=== PATIENT | male | born 1955 | race Caucasian/White ===

== ENCOUNTER → 2021-06-14 12:24 | Outpatient (BNVA) | payer OTHER, SELFPAY | PROVIDERS: Visit Provider Nurse Practitioner | DX: Z20.822 Contact with and (suspected) exposure to COVID-19 (principal) | CPT/HCPCS: 87635 ==

== ENCOUNTER → 2022-01-29 11:12 | Outpatient (BNVA) | payer OTHER, SELFPAY | PROVIDERS: Visit Provider Family Medicine | DX: M79.671 Pain in right foot (principal); M79.672 Pain in left foot; R53.83 Other fatigue; N40.0 Benign prostatic hyperplasia without lower urinary tract symptoms; R07.9 Chest pain, unspecified; F17.219 Nicotine dependence, cigarettes, with unspecified nicotine-induced disorders; Z76.89 Persons encountering health services in other specified circumstances | CPT/HCPCS: 80053; 80061; 84153; 84443; 85025 ==

== ENCOUNTER 2022-03-23 07:11 | Outpatient (CLI) | payer OTHER, SELFPAY ==
--- NOTE | 2022-03-23 08:00 | ECG_ITS ---
[facility] Test Date: 2022-03-23 Pat Name: Mike Carrillo Department: Room: Gender: Male Therapy Aide: Miriam Curry : 1955 Requested By: Morris Hair Order Number: [id number] Kim MD: Joy Rodriguez M.D. Interpretive Statements NAME OF STUDY: LEXISCAN SESTAMIBI STRESS TEST INDICATION: Chest Pain, PROCEDURE: At the baseline, the EKG revealed normal sinus rhythm with incomplete right bundle branch block pattern.. The baseline blood pressure was 144/85 mm Hg with a heart rate of 81 beats/min. Lexiscan was infused over a period of 20 seconds. A total of 0.4 milligrams of Lexiscan was infused. The stress phase was continued for a total of 5 minutes. Heart rate at the end of the stress phase was 90 with a blood pressure 144/78. The EKG at the peak infusion revealed no significant changes. Sestamibi was injected 20 seconds after the Lexiscan infusion. Blood pressure at the end of the recovery phase was 130/84 with a heart rate of 90 per minute. CONCLUSION: 1. No significant EKG changes with the LexiScan infusion 2. No LexiScan induced chest pain or cardiac arrhythmia 3. Normal blood pressure and heart rate response 4. Sestamibi/sestamibi perfusion scan pending; see separate report. Electronically Signed On 03-24-2022 22:49:07 CDT by Joy Rodriguez M.D. [id number]
--- NOTE | 2022-03-23 08:01 | NMCV_ITS ---
NM laron perf SPECT r/s* [id number] Mike Carrillo Age: 66 Gender: M : 1955 Exam Date: 03/23/2022 08:01 Ordering Phys: Morris Cristobal DO Technologist: HILDA Leon Exam Location: [facility] Indications: CHEST PAIN STRESS TEST Please see separate stress test report in [facility] for full findings IMAGE PROTOCOL Rest/Stress 1 Lexiscan Day Radiopharmaceutical Dose (mCi) Administration Site Administered by Rest: Tc-99m 10.6 IV HILDA Kuhn Sestamibi Stress:Tc-99m 32.7 IV HILDA Leon Sestamisaad Rest: 23-Mar-2022 60 Discovery 630 Stress: 23-Mar-2022 30 Discovery 630 0.4mg Lexiscan. Images obtained in supine and prone position. SPECT RESULTS Technical Quality: Excellent Raw Data Analysis: Normal Image Corrections: No attenuation or motion correction applied Summed Stress Score: 4 Summed Rest Score: 3 Summed Difference Score: 1 PERFUSION FINDINGS A small to moderate area of moderately decreased tracer uptake in the basal mid and apical inferior wall region with a subtle area reversibility in the mid inferior region the supine imaging. However with the prone imaging, no significant reversibility was noted. FUNCTIONAL RESULTS (calculated via Gated SPECT) Stress Image LV EF (%): 70 Stress EDV (mL):105 TID: 1.05 Stress ESV (mL):31 FUNCTIONAL FINDINGS: Segmental wall motion analysis revealing no gross wall motion abnormalities IMPRESSIONS 1. Myocardial perfusion imaging revealing a small to moderate area of persistent decreased tracer uptake in the inferior wall region with a subtle area of reversibility, suggesting myocardial scarring with very small area of alberta-infarction ischemia in the distribution of the right coronary artery. However in view of the inconsistency, most likely this is artifactual. 2. Normal LV ejection fraction of 70%. 3. Segmental wall motion analysis revealing no gross wall motion abnormalities. 4. Normal LV volume No similar previous studies are available for comparison Dr Joy Rodriguez MD [facility] (Electronically Signed) Final Date: 24 March 2022 05:41 S
[2022-03-23 08:13] VITALS: BMI 30.8
[2022-03-23 09:47] VITALS: BP 144/75; PULSE 98
[2022-03-23] MEDS: regadenoson 0.4 Mg/5 ml Syringe IVP (09:47)
== END 2022-03-23 07:12 | disposition home or self-care (01) ==
LOC: CDL 07:16
PROVIDERS: Visit Provider Family Medicine
DX: R07.9 Chest pain, unspecified (principal)
CPT/HCPCS: 78452; 93017; A9500; J2785

== ENCOUNTER 2023-01-12 11:29 | Emergency (ER) | payer OTHER, SELFPAY ==
[2023-01-12 11:38] VITALS: BP 144/93; PULSE 89; RESP 16; TEMP 36.3; O2SAT 95
[2023-01-12 11:48] VITALS: BP 158/90; PULSE 87; RESP 16; O2SAT 95
--- NOTE | 2023-01-12 12:10 | USCV_ITS ---
Mike Carrillo Age: 67 Gender: M : 1955 Exam Date: 01/12/2023 12:25 Ordering Phys: Kalpesh Lazo Technologist: Exam Location: [facility] [place] Indication: bilat edema lt leg pain PROCEDURES: The venous duplex Doppler examination of both lower extremities was performed in the standard fashion. The following venous structures were evaluated: common femoral vein, profunda vein, proximal portion of the greater saphenous vein, superficial femoral vein, and the popliteal vein. In addition, the posterior tibial and peroneal trunk were evaluated. FINDINGS: Normal 2-D Doppler and augmentation and compressibility throughout the lower extremity venous structures. Additional imaging through the proximal calf veins also reveals no thrombus. There is superficial thombus in the lt greater saphenous vein just below the knee. CONCLUSIONS Superfical thrombus left greater saphenous just below the knee Otherwise no evidence of left lower extremity DVT. No evidence of right lower extremity DVT. Eitan Gupta MD (Electronically Signed) Final Date: 12 January 2023 13:57 Amended: 26 January 2023 16:55 C
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
[2023-01-12 12:13] VITALS: BP 158/90; PULSE 80; RESP 18; O2SAT 93
[2023-01-12 12:56] VITALS: BP 166/87; RESP 18; O2SAT 93
[2023-01-12 13:15] VITALS: BP 151/116; PULSE 82; RESP 17; O2SAT 92
== END 2023-01-12 13:24 | disposition home or self-care (01) ==
PROVIDERS: Emergency Provider Physician Assistant; PCP Family Medicine
DX: I82.812 Embolism and thrombosis of superficial veins of left lower extremity (principal); Z86.19 Personal history of other infectious and parasitic diseases; F17.210 Nicotine dependence, cigarettes, uncomplicated
CPT/HCPCS: 93970; 99284

== ENCOUNTER 2023-03-19 05:43 | Outpatient (CLI) | payer OTHER, SELFPAY ==
[2023-03-19] VITALS (22 sets, daily range): BP systolic 123–160; BP diastolic 75–97; PULSE 70–86; RESP 10–19; TEMP 36.4–36.6; O2SAT 93–98; BMI 35.1
[2023-03-19] MEDS: aspirin 325 mg Tablet PO (06:30)
[2023-03-19] MEDS: diphenhydrAMINE 50 mg Capsule PO (06:30)
[2023-03-19 06:33] LABS: Basophils # 0.1 10^3/uL (0.0-0.1); Basophils % 0.7 %; Eosinophils # 0.4 10^3/uL (0.0-0.8); Eosinophils % 3.4 %; Hemoglobin 13.8 g/dL (11.7-16.6); Lymphocytes # 2.7 10^3/uL (0.8-4.8); Lymphocytes % 25.4 %; Mean Corpuscular HGB Conc 33.7 g/dL (30.0-36.0); Mean Corpuscular Hemoglobin 31.4 pg (28.0-34.0); Mean Corpuscular Volume 93.2 fl (80-94); Mean Platelet Volume 9.6 fL (7.4-10.4); Monocytes # 0.9 10^3/uL (0.2-0.9); Monocytes % 8.3 %; Neutrophils # 6.64 10^3/uL (1.8-7.7); Neutrophils % 61.7 %; Nucleated Red Blood Cells % 0 %; Platelet Count 227 10^3/cmm (130-400); Red Cell Distribution Width 14.8 % (12.1-15.1); White Blood Count 10.8 10^3/uL (4.0-10.0)
[2023-03-19 06:47] LABS: Anion Gap 14.9 (5-19); Blood Urea Nitrogen 11 mg/dL (8-23); Calcium 9.2 mg/dL (8.5-10.5); Carbon Dioxide 25 mmol/L (22-29); Chloride 105 mmol/L (98-107); Glomerular Filtration Rate 113.2 mL/min (90-130); Glucose 102 mg/dL (65-115); Osmolality Calculated 292 mOsm/kg (285-295); Potassium 3.9 mmol/L (3.5-5.1); Sodium 141 mmol/L (136-145)
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
--- NOTE | 2023-03-19 07:08 | XACV_ITS ---
Gender: Male : 1955 Exam Priority: Routine Antonino VASQUEZ; Diagnostic Cath Status: Elective Diagnostic Findings * Patient has been having unusual chest discomfort below his left clavicle for several months. Stress testing was done which showed a small fixed defect in the distribution of the right coronary artery with a small amount of alberta-infarct ischemia. Patient was also having shortness of breath and other unusual symptoms. He requested coronary angiography. * Coronary angiography reveals right coronary artery dominance. The left main coronary artery is normal. The circumflex is normal. The LAD exhibits to 20% narrowings in the proximal portion and an eccentric 50% narrowing in the midportion. Otherwise the vessel is normal. The right coronary artery is normal. Conclusions 1. Nonobstructive coronary artery disease of the LAD. Recommendations * Risk factor modification for secondary prevention. Interventional RX Recommendation: none Diagnostic RX Recommendation: medical therapy and/or counseling Ventriculography Ejection Fraction: 60.0 % I, the attending physician, have reviewed and verified all procedure medications. Yes, all medications given per verbal order Report Signatures Finalized by Dr. Devin Muñiz MD on 03/19/2023 08:16 AM
--- NOTE | 2023-03-19 08:32 | PC.NURSE ---
pt here from [employer] labourer. Bedside report received from Jorge FUENTES. TR band to the right radial site. IV noted to the left wrist. dressing noted to the right groin CDI. no hematoma noted at this time. education provided to the patient regarding bedrest and HOB at only 30 degrees. pulses palpable.
[2023-03-19 09:03] LABS: Glucose Point of Care 97 mg/dL (70-110)
--- NOTE | 2023-03-19 12:59 | PM.DCS ---
Discharge Providers Date of Admission: 03/19/23 08:41 Date of Discharge: March 19, 2023 Attending Provider at Admission: Devin Muñiz MD Attending Provider at Discharge: Devin Muñiz MD Primary Care Provider: Morris Cristobal DO Diagnoses at Discharge Discharge Diagnosis (1) Elevated blood pressure reading: Status: Acute (2) Chest pain: Status: Acute Reason for Visit Reason for Visit: R94.39 Brief History: Patient has been having odd symptoms in his chest including pain for the the better part of the year. 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 He has been bothered by this for all this time. He came to see me in the office a little over a month ago with these continued complaints. I initially tried to schedule angiography and the insurance company denied it. I then went to a peer to peer interview and they finally okayed the angiogram. Brought in for that today Hospital Course Hospital Course He underwent coronary angiography via the right groin. I was able to enter the right radial artery twice but was never able to feed the wire. 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 Otherwise his coronaries are normal. His left ventricular function is normal. There were no complications. Prior to discharge there were no complications of the right groin. There was no bleeding or hematoma or other vascular anomalies. Physical Exam Narrative: GENERAL: General he appears well HEENT: Exam within normal limits. NECK: Supple without jugular vein distention. The carotid upstroke is normal without bruits. BACK: Exam normal. LUNGS: Clear. HEART: Regular rate and rhythm. ABDOMEN: Benign without organomegaly or tenderness. EXTREMITIES: No edema. The time of discharge the right groin is flat, dry without bleeding or hematoma NEUROLOGIC: Exam normal. SKIN: Unremarkable. Discharge Data Studies Completed and Pending Completed Studies During Hospitalization Category Date Time Status [facility] request for service Routine Exams 03/19/23 07:08 Completed Laboratory Results WBC 10.8 10^3/uL (4.0-10.0) H 03/19/23 06:20 RBC 4.40 10^6/uL (4.1-5.3) 03/19/23 06:20 Hgb 13.8 g/dL (11.7-16.6) 03/19/23 06:20 Hct 41.0 % (42.0-52.0) L 03/19/23 06:20 MCV 93.2 fl (80-94) 03/19/23 06:20 MCH 31.4 pg (28.0-34.0) 03/19/23 06:20 MCHC 33.7 g/dL (30.0-36.0) 03/19/23 06:20 RDW 14.8 % (12.1-15.1) 03/19/23 06:20 Plt Count 227 10^3/cmm (130-400) 03/19/23 06:20 MPV 9.6 fL (7.4-10.4) 03/19/23 06:20 Neut % (Auto) 61.7 % 03/19/23 06:20 Lymph % (Auto) 25.4 % 03/19/23 06:20 Cotton % (Auto) 8.3 % 03/19/23 06:20 Eos % (Auto) 3.4 % 03/19/23 06:20 Baso % (Auto) 0.7 % 03/19/23 06:20 Neut # (Auto) 6.64 10^3/uL (1.8-7.7) 03/19/23 06:20 Lymph # (Auto) 2.7 10^3/uL (0.8-4.8) 03/19/23 06:20 Cotton # (Auto) 0.9 10^3/uL (0.2-0.9) 03/19/23 06:20 Eos # (Auto) 0.4 10^3/uL (0.0-0.8) 03/19/23 06:20 Baso # (Auto) 0.1 10^3/uL (0.0-0.1) 03/19/23 06:20 Nucleated RBC % (auto) 0 % 03/19/23 06:20 Nucleated RBCs # 0.0 /100WBC 03/19/23 06:20 Sodium 141 mmol/L (136-145) 03/19/23 06:20 Potassium 3.9 mmol/L (3.5-5.1) 03/19/23 06:20 Chloride 105 mmol/L (98-107) 06/16/23 06:20 Carbon Dioxide 25 mmol/L (22-29) 03/19/23 06:20 Anion Gap 14.9 (5-19) 03/19/23 06:20 BUN 11 mg/dL (8-23) 03/19/23 06:20 Creatinine 0.7 mg/dL (0.7-1.2) 03/19/23 06:20 GFR Calculation 113.2 mL/min (90-130) 03/19/23 06:20 Glucose 102 mg/dL (65-115) 03/19/23 06:20 POC Glucose 97 mg/dL (70-110) 03/19/23 08:55 Calculated Osmolality 292 mOsm/kg (285-295) 03/19/23 06:20 Calcium 9.2 mg/dL (8.5-10.5) 03/19/23 06:20 Procedures Performed Left heart catheterization, coronary angiography, left ventriculography. Vitals Last Vital Signs Temp 98 F 03/19/23 12:00 Pulse 73 03/19/23 11:30 Resp 14 03/19/23 11:30 BP 143/77 03/19/23 11:30 Pulse Ox 95 03/19/23 11:30 O2 Del Method Room Air 03/19/23 11:30 Discharge Plan Discharge Patient Disposition: Home Condition: Stable Prescriptions: Continued aspirin [Adult Low Dose Aspirin] 81 mg tablet,delayed release (DR/EC) 81 mg PO DAILY Qty: 90 3RF atorvastatin [Lipitor] 40 mg tablet 40 mg PO DAILY Qty: 90 1RF tamsulosin 0.4 mg capsule 0.4 mg PO DAILY furosemide 40 mg Tablet 40 mg PO DAILY PRN (Reason: Edema) Discharge Orders: Discharge Order (Routine); Ordered 03/19/23 Ordered By: Devin Muñiz Referrals: Cristin Nguyễn FNP [Nurse Practitioner] - 03/26/23 10:00 am Discharge Diet: Usual diet Discharge Activity: Increase activity as tolerated and Limit activity as instructed Patient Instructions: Opioid Safety, Post Angiogram Home Care Instructions Activity Restrictions/Additional Instructions: No lifting over 5 pounds for 2 days. Call if there is swelling, pain, bleeding of the right groin. Discharge Attestations Time Spent in Discharge Care*: greater than 30 min Quality Metrics Clinical Quality Measures [ No reported AMI, CVA or VTE this stay] Coding Level of Care Code 80698 Total time (in minutes) for Discharge: 35 Diagnoses Elevated blood pressure reading R03.0 Chest pain R07.9
== END 2023-03-19 12:25 | disposition home or self-care (01) ==
LOC: CCL 06:24 → CSU 08:42
PROVIDERS: PCP Family Medicine; Visit Provider Internal Medicine Cardiovascular Disease
DX: R07.9 Chest pain, unspecified (principal); R03.0 Elevated blood-pressure reading, without diagnosis of hypertension; Z79.82 Long term (current) use of aspirin; F17.290 Nicotine dependence, other tobacco product, uncomplicated; I25.10 Atherosclerotic heart disease of native coronary artery without angina pectoris
CPT/HCPCS: 36415; 36416; 80048; 82962; 85025; 93458; 96365; 99152; 99153; C1769; C1887; C1894; G0378; J1644; J2250; J3010; J3490; J7030; Q0163; Q9967

== ENCOUNTER → 2023-03-26 09:44 | Outpatient (BNVA) | payer OTHER, SELFPAY | PROVIDERS: PCP Family Medicine; Visit Provider Nurse Practitioner Family | DX: I25.10 Atherosclerotic heart disease of native coronary artery without angina pectoris (principal) | CPT/HCPCS: 80048 ==

== ENCOUNTER → 2023-12-07 13:28 | Outpatient (BNVA) | payer OTHER, SELFPAY | PROVIDERS: PCP Family Medicine; Visit Provider Family Medicine | DX: Z12.5 Encounter for screening for malignant neoplasm of prostate (principal); I25.10 Atherosclerotic heart disease of native coronary artery without angina pectoris; R60.0 Localized edema; N40.0 Benign prostatic hyperplasia without lower urinary tract symptoms | CPT/HCPCS: 80053; 80061; 85025; G0103 ==

== ENCOUNTER → 2024-10-16 13:30 | Outpatient (BNVA) | payer OTHER, SELFPAY | PROVIDERS: PCP Family Medicine; Visit Provider Family Medicine | DX: Z12.5 Encounter for screening for malignant neoplasm of prostate (principal); N40.0 Benign prostatic hyperplasia without lower urinary tract symptoms; R53.82 Chronic fatigue, unspecified; R40.0 Somnolence; I25.10 Atherosclerotic heart disease of native coronary artery without angina pectoris; E55.9 Vitamin D deficiency, unspecified; E83.42 Hypomagnesemia; R79.89 Other specified abnormal findings of blood chemistry | CPT/HCPCS: 80053; 80061; 82306; 82607; 83735; 84439; 84443; 85025; G0103 ==

== ENCOUNTER → 2025-04-14 15:47 | Outpatient (BNVA) | payer OTHER, SELFPAY | PROVIDERS: PCP Family Medicine | DX: R39.9 Unspecified symptoms and signs involving the genitourinary system (principal) | CPT/HCPCS: 81000 ==